=== PATIENT | female | born 1995 | race Caucasian/White ===

== ENCOUNTER 2020-12-04 18:28 | Emergency (ER) | payer SELFPAY ==
[2020-12-04 18:30] VITALS: BP 121/93; PULSE 115; RESP 18; TEMP 36.8; O2SAT 97
--- NOTE | 2020-12-04 20:01 | PC.NURSE ---
Went to see patient, she was no where to be seen, was seen leaving the ED with her belongings. ERP notified.
--- NOTE | 2020-12-04 20:13 | ED.GENADULT ---
HPI - General Adult General Chief complaint: Wound/Laceration Stated complaint: right knee injury Time Seen by Provider: 12/04/20 18:59 Source: patient Mode of arrival: ambulatory Limitations: no limitations History of Present Illness HPI narrative: Patient presents with chief complaint of laceration to the anterior aspect of her right knee that she sustained when crawling through her apartment window. Patient states she is up-to-date on tetanus. Patient denies any other injuries or concerns. Review of Systems Review of Systems: CONSTITUTIONAL: Denies fever, chills, or sweats. EYES: Denies visual changes, redness, or discharge. ENT: Denies rhinorrhea, congestion, sore throat, or otalgia. CARDIOVASCULAR: Denies chest pain, palpitations, or edema. RESPIRATORY: Denies cough or dyspnea. GASTROINTESTINAL: Denies abdominal pain, nausea, vomiting, or diarrhea. GENITOURINARY: Denies dysuria or hematuria. SKIN: Reports laceration denies rash or itching. MUSCULOSKELETAL: Denies back pain, joint pain, or myalgia. NEUROLOGIC: Denies headache, numbness, dizziness, or weakness. PSYCHIATRIC: Denies anxiety or depression. [facility] Past Medical History Medical History (Updated 12/04/20 @ 20:15 by Haleigh Stein PA-C) Healthy female adult Surgical History Surgical History (Updated 04/07/19 @ 12:58 by Scar Kelley) No history of previous surgery Social History Social History (Updated 04/07/19 @ 12:58 by Scar Kelley) Smoking status: Never smoker Exam Narrative: GENERAL: Well-appearing, well-nourished, and in no acute distress. HEAD: Normocephalic, atraumatic. EYES: PERRLA and EOMI. CHEST: Clear to auscultation. No respiratory distress. No wheezes rales or rhonchi HEART: Regular rate and rhythm. EXTREMITIES: Normal range of motion. No edema. SKIN: Approximately 2 cm vertical laceration to the anterior aspect of right knee. Not actively bleeding. No foreign bodies noted. Warm, dry, no rash. NEURO: No focal deficits. Alert and oriented x3. PSYCH: Normal mood and affect. Course Course Emergency Course: Patient eloped prior to suture completion. Vital Signs Vital signs: Vital Signs Temperature 98.3 F 12/04/20 18:30 Pulse Rate 115 H 12/04/20 18:30 Respiratory Rate 18 12/04/20 18:30 Blood Pressure 121/93 H 12/04/20 18:30 Pulse Oximetry 97 12/04/20 18:30 Temperature 98.3 F 12/04/20 18:30 Pulse Rate 115 H 12/04/20 18:30 Respiratory Rate 18 12/04/20 18:30 Blood Pressure 121/93 H 12/04/20 18:30 Pulse Oximetry 97 12/04/20 18:30 Medical Decision Making Vital Signs Vital Signs: Vital Signs Temperature 98.3 F 12/04/20 18:30 Pulse Rate 115 H 12/04/20 18:30 Respiratory Rate 18 12/04/20 18:30 Blood Pressure 121/93 H 12/04/20 18:30 Pulse Oximetry 97 12/04/20 18:30 Temperature 98.3 F 12/04/20 18:30 Pulse Rate 115 H 12/04/20 18:30 Respiratory Rate 18 12/04/20 18:30 Blood Pressure 121/93 H 12/04/20 18:30 Pulse Oximetry 97 12/04/20 18:30 Discharge Plan Discharge Clinical Impression: Laceration Patient Disposition: Elopement After Seen by Prov Condition: Stable Prescriptions: No Action ibuprofen [IBU] 600 mg tablet 600 mg PO Q6H PRN (Reason: pain) Qty: 20 RF: 0 ondansetron 4 mg tablet,disintegrating 4 mg PO Q6H PRN (Reason: nausea and vomiting) Qty: 10 RF: 0 Follow-up/Referrals: PHYSICIAN,[employer] [Primary Care Provider] -
== END 2020-12-04 20:03 | disposition left against medical advice (07) ==
PROVIDERS: Emergency Provider Emergency Medicine
DX: S81.011A Laceration without foreign body, right knee, initial encounter (principal); W26.9XXA Contact with unspecified sharp object(s), initial encounter
CPT/HCPCS: 99282